=== PATIENT | female | born 1960 | race Asian ===

== ENCOUNTER 2019-07-11 09:03 | Outpatient (CLI) | payer OTHER | END 2019-07-11 22:46 | disposition home or self-care (01) | LOC: LABW 09:03 | PROVIDERS: Specialist | DX: E78.2 Mixed hyperlipidemia (principal); Z79.899 Other long term (current) drug therapy | CPT/HCPCS: 36415; 80061; 80076 ==

== ENCOUNTER 2022-12-24 16:11 | Outpatient (CLI) | payer BC | END 2022-12-24 19:42 | disposition home or self-care (01) | LOC: US 16:11 | PROVIDERS: ATTEND Family Medicine | DX: R22.31 Localized swelling, mass and lump, right upper limb (principal) ==

== ENCOUNTER 2023-01-18 14:19 | Outpatient (CLI) | payer OTHER | END 2023-01-18 19:19 | disposition home or self-care (01) | LOC: MRI 14:19 | PROVIDERS: ATTEND Family Medicine | DX: R22.31 Localized swelling, mass and lump, right upper limb (principal) | CPT/HCPCS: 36415; 82565; 84520; A9576 ==

== ENCOUNTER 2023-03-01 13:20 | Outpatient (CLI) | payer BC ==
[2023-03-01 13:49] LABS: PLATELET COUNT 331 K/uL (152-353)
[2023-03-01 14:20] LABS: PARTIAL THROMBOPLASTIN TIME 25.2 SECONDS (23.9-36.7)
[2023-03-01 14:35] LABS: POTASSIUM 3.3 mmol/L (3.6-5.2)
== END 2023-03-01 19:41 | disposition home or self-care (01) ==
LOC: LABW 13:20
PROVIDERS: ATTEND Family Medicine
DX: R07.89 Other chest pain (principal); I10 Essential (primary) hypertension; E11.65 Type 2 diabetes mellitus with hyperglycemia; R53.83 Other fatigue; R06.02 Shortness of breath
CPT/HCPCS: 36415; 80053; 81002; 82550; 83735; 84100; 84439; 84443; 84484; 85027; 85610; 85730; 86141; 93005